=== PATIENT | male | born 1960 | race Caucasian/White ===

== ENCOUNTER 2017-05-09 06:28 | Day surgery (SDC) | payer OTHER ==
[~2017-05-09] VITALS: Ht 165.1 cm; Wt 104.3 kg
[2017-05-09] VITALS (11 sets, daily range): BP systolic 115–149; BP diastolic 62–81
--- NOTE | ~2017-05-09 | EKG ---
[address] [address] ELECTROCARDIOGRAM REPORT Name: STAS URRUTIA CHAPO Room #: 150-3 [facility]..#: [id number] Admission: 05/09/17 Attend Phys: Cesar Schafer MD Discharge: Date of : 60 Report #: [id number] THIS REPORT FOR: //name// [facility] Test Date: 2017-05-09 Test Time: 13:17:58 Pat Name: STAS URRUTIA Department: Room: 150 3 Gender: M Lead Php Developer: dennys : 1960 Requested By: Cesar Schafer Order Number: [id number] MD: Corbin Vera Measurements Intervals [place] Rate: 55 P: 40 MO: 180 QRS: -15 QRSD: 90 T: 41 QT: 406 QTc: 389 Interpretive Statements Sinus rhythm Borderline left axis deviation Abnormal R-wave progression, late transition No previous ECG available for comparison Electronically Signed On 05-09-2017 14:02:49 CDT by Corbin Vera [email or web address] <ELECTRONICALLY SIGNED> By: Corbin Vera MD 05/09/17 1402 1317 16 Corbin Vera MD /RULA
[~2017-05-09 06:28] MED LIST: BYSTOLIC PO; LAMISIL250 MG; NORCO 5-325 TA1 EACH PO; PROTONIX40 M1 PO; SINGULAIR 10 MG10 M1 PO; WELLBUTRIN SR150 MG PO
[2017-05-10 00:30] VITALS: BP 134/74
[2017-05-10 01:30] VITALS: BP 132/74
[2017-05-10 02:30] VITALS: BP 115/60
[2017-05-10 03:30] VITALS: BP 130/60
[2017-05-10 08:30] VITALS: BP 129/67
[2017-05-10] MEDS ORDERED: TRAMADOL 50 MG50 MG PO (10:40)
[2017-05-10] MEDS ORDERED: FLEXERIL PO (10:40)
[2017-05-10 10:53] VITALS: BP 129/67
== END 2017-05-10 10:30 | disposition home or self-care (01) ==
LOC: OR 06:28 → TBA 06:29 → OR 09:12 → 5S 18:03 → OR 05-10 10:30
DX: K43.2 Incisional hernia without obstruction or gangrene (principal); F32.9 Major depressive disorder, single episode, unspecified; F41.9 Anxiety disorder, unspecified; F17.210 Nicotine dependence, cigarettes, uncomplicated; K21.9 Gastro-esophageal reflux disease without esophagitis
CPT/HCPCS: 50010; 50101; 50249; 50386; 50555; 50978; 52265; 53065; 53307; 53335; 54022; 54118; 56525; 56526; 56530; 62110; 62900; 70005

== ENCOUNTER 2019-10-06 10:00 | Observation (INO) | payer OTHER ==
[2019-10-06] VITALS (27 sets, daily range): BP systolic 118–171; BP diastolic 49–84
[~2019-10-06] VITALS: Ht 170.2 cm; Wt 96.5 kg
--- NOTE | ~2019-10-06 | D ---
[facility] [place] [address] DISCHARGE SUMMARY Name: STAS URRUTIA LANESBOROUGH Room #: 211-[facility] M.R.#: [id number] Admission: 10/06/19 Attend Phys: Joanna Toure MD Discharge: Date of : 60 Report #: [id number] THIS REPORT FOR: //name// CC: Royer Toure DATE OF SERVICE: 10/07/2019 ADMITTING DIAGNOSIS: Unstable angina. DISCHARGE DIAGNOSES: 1. Coronary artery disease, multivessel. 2. Unstable angina, resolved. 3. Hypertension. 4. Dyslipidemia. 5. Anxiety. FOLLOWUP: Dr. Cleveland in 7-10 days. DISCHARGE MEDICATIONS: Sublingual nitroglycerin 0.4 mg p.o. p.r.n., prasugrel 10 mg p.o. daily, atorvastatin 40 mg p.o. daily, isosorbide 30 mg p.o. daily, metoprolol succinate 25 mg p.o. b.i.d., aspirin 325 mg daily, bupropion hydrochloride 150 b.i.d., Singulair 10 mg day, Protonix 40 mg b.i.d. PROCEDURES PERFORMED: 1. Left heart catheterization. 2. Percutaneous transluminal coronary angioplasty and stenting of the left anterior descending, first diagonal subtotal occlusion. DISCHARGE DIET: [employer] step 1 diet with 3 grams salt restriction. BRIEF CLINICAL HISTORY: See history and physical in chart. HOSPITAL COURSE: The patient presented to the [facility] outpatient clinic for elective stress echo. The patient had been having chest discomforts with activity, rest and exertion and subsequently was being evaluated for same. During the stress study, the patient developed substernal chest discomfort radiating to the left arm with wall motion abnormalities of the anterolateral and apical anterior wall of the left ventricle. Subsequent to this, the symptoms resolved, but discussions were carried forth and admission for cardiac catheterization and possible intervention was recommended. The patient underwent cardiac catheterization demonstrated a subtotal first diagonal branch, a mid LAD that had a complex lesion involving the bifurcation and a size mismatch lesion that did not appear to have decreased flow. The diagonal had CHIQUIS 1 flow to CHIQUIS 0 flow. The LAD had CHIQUIS 3 flow. Subsequent to this, he [facility] [address] [place] [address] DISCHARGE SUMMARY Name: STAS URRUTIA LANESBOROUGH Room #: [address] [place] [address] M.R.#: [id number] Admission: 10/06/19 Attend Phys: Joanna Toure MD Discharge: Date of : 60 Report #: [id number] underwent evaluation of his right coronary system, which demonstrated some distal diffuse disease with moderate small vessel disease present. Circumflex was essentially mild plaquing only. He subsequently underwent a dilatation of the first diagonal branch involving a 2.0 x 20 mm balloon. Subsequent to this, a 2.0 x 22 mm TIMO stent was placed and dilated to 12 atmospheres. Results were excellent and no evidence of loss of side branch, distal embolization with CHIQUIS flow normalizing to CHIQUIS 3. In view of the absence of surgical backup, the complex LAD lesion, which did not appear to be symptomatic at present, was not intervened at this time. Optimization of medical regimen with the addition of beta blockade, dual antiplatelet therapy, long-acting nitrates was initiated. The patient was allowed to ambulate from floor without any issues after sheaths were pulled and appropriate resting interval achieved. He is now being discharged home in stable and improved condition to follow up with previously stated discharge instructions and medications. He has been instructed in discussions of the other lesions present and how to further manage that for which he does voice understanding. The options are either revascularization or optimizing medical regimen. His medical regimen control symptoms. We will discuss this further at our initial outpatient followup. By: [id number] Royer Cleveland MD /elkin
[~2019-10-06 10:00] MED LIST changes: +FLEXERIL PO; +TRAMADOL 50 MG50 MG PO
[2019-10-06 12:08] LABS: HEMATOCRIT 54.1 % (42.0-52.0); HEMOGLOBIN 18.2 gm/dL (14.0-18.0); MCH 27.4 pg (26.0-34.0); MCHC 33.6 g/dL (28.0-37.0); MCV 81.5 fL (80.0-100.0); RBC 6.64 mil/uL (4.50-6.00); RDW 13.6 % (10.5-14.5); WBC 7.1 thou/uL (4.0-11.0)
[2019-10-06 12:11] LABS: ANION GAP 7 mmol/L (7-16); BUN 15 mg/dL (7-18); CALCIUM 9.2 mg/dL (8.5-10.1); CHLORIDE 99 mmol/L (98-107); CO2 28 mmol/L (21-32); CREATININE 1.3 mg/dL (0.7-1.3); GLUCOSE 103 mg/dL (74-106); POTASSIUM 4.2 mmol/L (3.5-5.1); SODIUM 134 mmol/L (136-145)
[2019-10-06] MEDS ORDERED: BISOPROLOL FUMA10 MG PO (12:13)
[2019-10-06 12:21] LABS: ALBUMIN 3.7 g/dL (3.4-5.0); CHOLESTEROL 202 mg/dL (<200); HDL CHOLESTEROL 39 mg/dL (>40); LDL CHOLESTEROL 145 mg/dL (<100); SGOT 19 U/L (15-37); SGPT 28 U/L (30-65); TC:HDL 5.2 Ratio (Not establshd); TOTAL PROTEIN 7.6 g/dL (6.4-8.2); TRIGLYCERIDE 90 mg/dL (<150); TROPONIN-I <0.06 ng/mL (<0.06); VLDL 18 mg/dL (<40)
--- NOTE | 2019-10-06 13:23 | EXE ---
[facility] [address] [place] [address] STRESS ECHOCARDIOGRAM Name: STAS URRUTIA RAYMOND Room #: REG DIRK Britton#: [id number] Admission: 10/06/19 Attend Phys: Mary Lou Arriaga Discharge: Date of : 60 Report #: [id number] THIS REPORT FOR: //name// APPROVED REPORT Study performed: 10/06/2019 10:20:24 Exam: Stress Echocardiogram Indication: Chest pain , Hypertension Patient Location: Out-Patient Stress Nurse: Tiki Alarcon RN Room #: Echo lab 2 Status: routine Ht: 5 ft 7 in HR: 54 bpm BP: 152/74 mmHg Rhythm: Bradycardia Medical History Medical History: HTN Allergies: No known drug allergies Cardiac Risk Factors: HTN Exercise History: Physically active Procedure The patient underwent an Exercise Stress Test using the Miguel Angel Protocol. Blood pressure, heart rate, and EKG were monitored. An Echocardiogram was performed by coal gasification technician in four stages in quad fashion. At peak stress, four selected images were obtained and placed side by side with resting images for comparison. Stress Test Details Stress Test: Exercise stress testing was performed using a Miguel Angel protocol. HR Resting HR: 54 bpm Max Heart Rate (APMHR): 161 bpm Max HR Achieved: 108 bpm Target HR (85% APMHR): 136 bpm % of APMHR: 67 Recovery HR: 74 bpm HR response to stress: Blunted HR response to stress BP Resting BP: 152/74 mmHg Max BP: 216/92 mmHg Recovery BP: 168/92 mmHg [facility] [address] [place] [address] STRESS ECHOCARDIOGRAM Name: STAS URRUTIA RAYMOND Room #: REG [facility]#: [id number] Admission: 10/06/19 Attend Phys: Mary Lou Arriaga Discharge: Date of : 60 Report #: [id number] BP response to stress: Abnormal hypertensive response to stress. ECG Clinical Reason for Termination: Chest pain, left arm pain Stress Symptoms: Chest pain, left arm pain Exercise duration: 8 min sec Highest Stage Achieved: Stage 3: 3.4 mph at 14% grade. Exercise capacity: 10.4 METs Overall Exercise Capacity for Age: Average Stress ECG Conclusion 1. subjectively abnormal with development of substernal chest pain consistent with angina 2. electrocardiographic subtle changes with possibly slight elevation of anteral lateral leads 3. average functional capacity Pre-Stress Echo The resting Echocardiogram showed normal left ventricular contractility with an estimated Ejection Fraction of about >55%. The resting echocardiogram demonstrated normal wall motion in all wall segments. Post-Stress Echo The stress Echocardiogram showed abnormal left ventricular contractility with an estimated Ejection Fraction of about 55-60%. The stress Echocardiogram demonstrated wall motion abnormality in the anterolateral, anteroapical wall. Conclusion Clinical Response: Ischemic Exercise Capacity: Average Stress ECG Response: Equivocal Stress Echo Images: Ischemic 1. high risk for ischemia involving LAD and Diagonal distribution No prior study available for comparison. Other Information Study Quality: Adequate [facility] [address] [place] [address] STRESS ECHOCARDIOGRAM Name: STAS URRUTIA RAYMOND Room #: REG [facility].#: [id number] Admission: 10/06/19 Attend Phys: Mary Lou Arriaga Discharge: Date of : 60 Report #: [id number] <Conclusion> 1. high risk for ischemia involving LAD and Diagonal distribution <ELECTRONICALLY SIGNED> By: Royer Cleveland MD 10/06/19 1322 21 21 Royer Cleveland MD /INF
[2019-10-06 13:38] LABS: PROTIME 10.5 Seconds (9.3-11.4)
--- NOTE | 2019-10-06 15:10 | NUR ---
PATIENT ADMITTED TO ICU BED 238 PER CART FROM [employer] SHEETS SUPERVISOR POST CARDIAC CATH WITH STENT TO DIAGIONAL ARTERY. SHEATH IN RT GROIN. ATTACHED TO MONITORS AND ASSESSMENT DONE
[2019-10-06] MEDS ORDERED: BYSTOLIC10 MG PO (16:56)
--- NOTE | 2019-10-06 17:05 | NUR ---
RT GROIN SHEATH PULLED BY PAYROLL AND BENEFITS SPECIALIST, HEMOSTATIS OBTAINED. AT BEDSIDE. INSTRUCTED NOT TO BEND RT LEG AT THE HIP, NOT TO CROSS LEG AND TO STAY IN BED FOR 6 HOURS, AND TO HOLD HAND WITH PRESSURE ON GROIN IF HE COUGHS OR SNEEZES. PATIENT AND VERBALIZE UNDERSTANDING.
--- NOTE | 2019-10-06 19:58 | NUR ---
PATIENT REMAINS IN REVERSE [place], RT GROIN SITE WITHOUT HEMATOMA OR BURISING, SITE DRESSING IS DRY AND INTACT. VISITING WITH FAMILY.
[2019-10-07] VITALS (12 sets, daily range): BP systolic 128–156; BP diastolic 64–87
--- NOTE | 2019-10-07 05:11 | NUR ---
ASSUMED PT CARE AT 1900. PT IS ALERT AND ORIENTED WITH NO SIGN OF DISTRESS NOTED. PT IS LAYING IN BED AND IS ON BEDREST DUE TO CATH PROCEDURE. OFF BEDREST AT 0030. RIGHT GROIN SITE IS INTACT AND DRIED. NO HEMATOMA, BLEEDING OR BURISING NOTED. ASSESSMENT COMPLETED AND DOCUMENTED. SCHEDULED MEDS ADMINISTERED TO PT. FAMILY AT BEDSIDE. DENIES ANY FURTHER NEEDS AT THIS TIME.
[2019-10-07 05:21] LABS: ABSOLUTE NEUTROPHILS 7.9 thou/uL (1.4-8.2); BASOPHILS 0.4 % (0.0-2.0); EOSINOPHILS 1.9 % (0.0-3.0); HEMATOCRIT 49.5 % (42.0-52.0); HEMOGLOBIN 16.5 gm/dL (14.0-18.0); LYMPHOCYTES 10.8 % (24.0-44.0); MCH 27.5 pg (26.0-34.0); MCHC 33.4 g/dL (28.0-37.0); MCV 82.4 fL (80.0-100.0); MONOCYTES 6.7 % (1.0-8.0); PLATELET COUNT 244 thou/uL (150-400); POLYS 80.2 % (36.0-66.0); WBC 9.8 thou/uL (4.0-11.0)
[2019-10-07 05:29] LABS: CALCIUM 8.8 mg/dL (8.5-10.1); CREATININE 1.3 mg/dL (0.7-1.3); POTASSIUM 4.9 mmol/L (3.5-5.1)
--- NOTE | 2019-10-07 05:47 | NUR ---
PT CAME FROM ICU THIS AM AT 0530am. VSS. PT A&OX4. NO COMPLAINTS. PT WAS ACCOMPANIED BY . R GROIN SITE IS CDI SOME BRUISING NOTED. EDUCATION GIVEN ON HEART HEALTHY DIET. PT IS STABLE, NS AT 100. WILL CONTINUE MONITOR
[2019-10-07] MEDS ORDERED: EFFIENT10 MG PO (08:57)
[2019-10-07] MEDS ORDERED: LIPITOR40 MG PO (08:58)
[2019-10-07] MEDS ORDERED: ASA5UEC PO (08:58)
[2019-10-07] MEDS ORDERED: METOPROLOL SUCC25 M1 PO (09:00)
[2019-10-07] MEDS ORDERED: IMDUR 30 MG TAB30 M1 PO (09:00)
[2019-10-07] MEDS ORDERED: NITROGLYCERIN0.4 MG SUBLING (09:26)
--- NOTE | 2019-10-07 09:52 | NUR ---
RECEIVED PT'S CARE AROUND 0720; PT. ON BED A0X4; C/O HEADACHE; 03/19; REFUSED PRN PAIN MEDICATION; DURING ASSESSMENT ST. DECREASE PAIN OVER HEADACHE; SPOUSE AT THE BED SIDE; EDUCATED ABOUT PAIN MANAGEMENT; AM MEDICATIONS GIVEN; EDUCATED ABOUT DECREASING SMITH FOOD; INCREASING VEGETABLES; EXERCISE; EDUCATED ABOUT ASKING PHYSICIAN WHEN MIGHT RETURN TO WORK ON REGULAR BASIS; ST. UNDERSTANDING; NO C/O CP; ASSESSMENT CHARGED; FOLLOWING POC; D/C ORDERS FROM PHYSICIAN; PT. NOTIFIED;
--- NOTE | 2019-10-08 12:58 | EKG ---
[place] [address] [facility] [place] [address] ELECTROCARDIOGRAM REPORT Name: STAS URRUTIA CHAPO Room #: 211-P [facility] M.R.#: [id number] Admission: 10/06/19 Attend Phys: Joanna Toure MD Discharge: 10/07/19 Date of : 60 Report #: [id number] THIS REPORT FOR: //name// [facility] Test Date: 2019-10-07 Test Time: 08:12:15 Pat Name: STAS URRUTIA Department: Room: 211 Gender: M Lead Portfolio Manager: Kallie MIGUEL : 1960 Requested By: Melanie Cook Order Number: [id number] MD: Lucas Howe Measurements Intervals [place] Rate: 61 P: 42 [place]: 172 QRS: -20 QRSD: 93 T: 50 QT: 398 QTc: 401 Interpretive Statements Sinus rhythm Poor R wave progression Compared to ECG 05/09/2017 13:17:58 No significant changes Electronically Signed On 10-08-2019 12:58:26 BASKETBALL COACH by Lucas Howe [email or web address] <ELECTRONICALLY SIGNED> By: Lucas Howe MD, [facility] 10/08/19 1258 1 1 Lucas Howe MD, [facility] /EPI
--- NOTE | 2019-10-11 11:33 | CATHLAB ---
[facility] [address] [place] [address] INVASIVE PROCEDURE REPORT Name: STAS URRUTIA CHAPO Room #: 211-P [facility] M.R.#: [id number] Admission: 10/06/19 Attend Phys: Mary Lou Arriaga Discharge: 10/07/19 Date of : 60 Report #: [id number] THIS REPORT FOR: //name// APPROVED REPORT Study performed: 10/06/2019 11:59:19 Patient Details Patient Status: Out-Patient Room #: The patient is a 59 year-old male Event Personnel Royer Cleveland Petroleum Production Engineer, Maylin Looney, Altagracia Duran Sandifer, David Monitor, Judy Mathis events director Performed Left Heart Cath w/or w/o Coronaries [id number] [facility] Place w/wo Plasty Addl BR DIAG 1 C9601 DESADDL, supervision of conscious sedation Indication Unstable angina (>0 to less than or equal to 6 hours) Procedure Narrative The Right Groin^ was infiltrated with 1% Lidocaine subcutaneous anesthesia. A PINNACLE 4FR Sheath #[id number] sheath was inserted into the RFA^. Coronary angiography was performed using coronary diagnostic catheters. The right coronary system was accessed and visualized with a JR4 catheter. The left coronary system was accessed and visualized with a JL4 catheter. The left ventricle was accessed and visualized with a PIGTAIL catheter. Left ventricular/Aortic Valve gradient assessed via catheter pullback. The patient tolerated the procedure well and there were no complications associated with the procedure. There was no hematoma. Intraoperative Conscious Sedation Sedation start time: 12.29 Case end Time: 13.12 Versed 3 mg Fluoro Time: 9.46 minutes Dose: DAP 49282.00 cGycm2 1852 mGy Contrast Type and Amount: Omnipaque 200 ml [facility] [place] [address] INVASIVE PROCEDURE REPORT [facility] Room #: 211-P [facility] M.R.#: [id number] Admission: 10/06/19 Attend Phys: Mary Lou Arriaga Discharge: 10/07/19 Date of : 60 Report #: [id number] Coronary Angiography The patient's coronary anatomy is right dominant. Diagnostic Cath Left Main Left main is of normal origin and caliber is small caliber vessel which bifurcates into left anterior descending left circumflex. His luminal irregularities of less than 20% identified LAD Small-caliber type II vessel which courses in the anterior interventricular sulcus. There is a bifurcation it involves a diagonal branch early branch arising in the LAD proper. The LAD proper appears to have about a 50% lesion involving the origin of first septal cafeteria server followed by a eccentric 30% lesion. The vessel continues in the anterior interventricular sulcus with luminal irregularities noted and terminating as a small caliber vessel T apex. Diagonal 1 Small-caliber vessel which has a high-grade subtotal lesion in its proximal third. The vessel reconstitutes with CHIQUIS 2 flow in demonstrating a long small-caliber vessel. Yearly branch of the diagonal branches identified and is quite small in caliber and less than half a millimeter Circumflex Moderate caliber vessel courses in the AV groove giving rise to a lateral wall marginal branch. There is no significant posterior wall component of the left circumflex. This marginal branches trifurcating branches of luminal irregularities are noted but no high-grade lesions OM1 Monitor large-caliber vessel with multiple branches on the left ventricle with luminal irregularities present Right Coronary Small to moderate caliber vessel of normal origin. Has a concentric less than 50% lesion proximally which is not flow-limiting. Continues to the acute marginal gives rise to small IV marginal branch. There are luminal irregularities in the proximal portion of the CVA. The vessel then continues in St. irregularities which is diffuse. At the crux of the heart a small-caliber posterior descending artery arises which proceeds to the apex it narrows dramatically after a bifurcation and there may be a lesion at this site although the vessel appears to be less than half a millimeter diameter. The distal right circulation is a small insignificant caliber vessels with diffuse irregularities R PDA Small-caliber vessel with a rapid tapering this mid course after a branching of other vessels there may be a lesion at this site but the vessel is quite small in diameter Left Ventriculography Left Ventriculography was not performed. [facility] [address] [place] [address] INVASIVE PROCEDURE REPORT Name: STAS URRUTIA CHAPO Room #: 211-P [facility] M.R.#: [id number] Admission: 10/06/19 Attend Phys: Mary Lou Arriaga Discharge: 11/28/19 Date of : 60 Report #: [id number] Hemodynamics The aortic pressure is 142/80 mmHg with a mean of 73 mmHg. The left ventricular pressure is 170/13 mmHg with a mean of mmHg. The left ventricular end diastolic pressure is 24 mmHg. There was no gradient across the aortic valve upon pullback. Pullback from the left ventricle to the aorta revealed no gradient across the aortic valve. PCI Technique After coronary angiography was felt that the subtotal diagonal branches was the culprit lesion and therefore a 6 Occitan system was upsized for intervention. A standard JL4 guide was then engaged the left coronary ostium. 014 wire and advanced into the distal diagonal branch. A 2 mm balloon was then utilized for dilatation during which time the patient had reproduction of his chest discomfort. A 2.0 x 22 mm Ichor Therapeuticstronic TIMO stent was then positioned across the lesion not involving the origin of the LAD proper. This was dilated to standard deployment pressures and subsequently expanded to use 16 jennifer. Postdilatation the vessel was widely patent with CHIQUIS 1 flow. There is no loss of side branch distal embolization or intraluminal thrombus noted. The center of the stent was reexpanded utilizing is similar balloon to 18 jennifer with improved results. Stated widely patent stent. Final pressures and images were obtained. System was removed sheaths sewn in place. Patient tolerated procedure well without complications PCI Technique Lesion Percutaneous coronary intervention was performed on the first diagnonal branch segment. A LAUNCHER 6FR JL4 #[id number] Guide Catheter was used to engage the ostium. A Luge Wire (J) .014 X 182CM #[id number] Interventional Guidewire was used to cross the lesion. BALLOON DILATION A Balloon catheter Sprinter OTW 2.0 x 20 #[id number] was inserted and inflated up to 8.00atm for 19seconds. Additional Inflation: 8.00atm for 19seconds. STENT DEPLOYMENT A drug-eluting stent RESOLUTE ANGELA OTW 2.0 X 22 #[id number] was inserted and inflated up to 4.00atm for 4seconds. Additional Inflation: 12.00atm for 10seconds. Conclusion 1. Coronary disease single vessel significant involving first diagonal branch and proximal mid LAD 2. Abnormal hemodynamics with elevated left end-diastolic [facility] [address] [place] [address] INVASIVE PROCEDURE REPORT Name: STAS URRUTIA CROWDER Room #: 211-P [facility] M.R.#: [id number] Admission: 10/06/19 Attend Phys: Mary Lou Arriaga Discharge: 10/07/19 Date of : 60 Report #: [id number] pressures 3. successful percutaneous revascularization with a 2.0 x 22 mm Medtronic TIMO stent to the first diagonal branch Recommendations Cardiac Rehabilitation Referral Cardiac Risk Reduction Program Aggressive Medical Therapy Medications Administered Prasugrel <ELECTRONICALLY SIGNED> By: Royer Cleveland MD 10/11/19 1133 1133 113 Royer Cleveland MD /INF
== END 2019-10-07 10:59 | disposition home or self-care (01) ==
LOC: CV 10:00 → TBACV 13:58 → ICU 15:24 → 2N 10-07 05:41
PROVIDERS: Nurse Practitioner; ADMIT Internal Medicine
DX: I25.110 Atherosclerotic heart disease of native coronary artery with unstable angina pectoris (principal); I10 Essential (primary) hypertension; E78.5 Hyperlipidemia, unspecified; F41.9 Anxiety disorder, unspecified

== ENCOUNTER → 2020-08-22 | Outpatient (CLI) | payer OTHER ==
[~2020-08-22] MED LIST changes: +ASA5UEC PO; +BISOPROLOL FUMA10 MG PO; +BYSTOLIC10 MG PO; +EFFIENT10 MG PO; +IMDUR 30 MG TAB30 M1 PO; +LIPITOR40 MG PO; +METOPROLOL SUCC25 M1 PO; +NITROGLYCERIN0.4 MG SUBLING
== END ==
LOC: SJCVCIMAG 06:52
PROVIDERS: ATTEND Internal Medicine
DX: I49.3 Ventricular premature depolarization (principal); Z79.899 Other long term (current) drug therapy; Z87.891 Personal history of nicotine dependence